=== PATIENT | male | born 1940 | race Caucasian/White ===

== ENCOUNTER 2019-05-29 04:49 | Inpatient (IN) ==
--- NOTE | 2019-05-24 11:21 | PAT Medication Instructions ---
Medication Instructions Date of Service May 24, 2019 Home Medications atorvastatin 20 mg PO QAM hydrochlorothiazide 25 mg PO QAM losartan 25 mg PO QAM metronidazole 1 applic TOPICAL BID tamsulosin 0.4 mg PO QPM STOP taking 24 hours before surgery metronidazole 1 applic TOPICAL BID DO NOT take the morning of surgery hydrochlorothiazide 25 mg PO QAM losartan 25 mg PO QAM Take morning of surgery With a small sip of water, OTHERWISE NOTHING TO EAT OR DRINK AFTER MIDNIGHT: atorvastatin 20 mg PO QAM Take evening before surgery tamsulosin 0.4 mg PO QPM Other Notes If you have any questions please call us at [phone] or [phone] or [phone] or [phone]
--- NOTE | 2019-05-24 11:43 | Anesthesiology Consultation ---
Date of Service May 24, 2019 Assessment & Plan (1) Encounter for pre-operative examination: Chart Review Chart Review: Acceptable Risk for Surgery and Patient seen in Pre Admission Testing Teaching & Discussion Instructed NPO after midnight before surgery, except medications with 15 cc of water. Medication instructions provided according to the PAT guidelines. History Surgery Operation Date: 05/29/19 11:55 Proposed Procedures p Left Laparoscopic Hand Assisted Nephrectomy - Toby Rao MD Height/Weight Height: 5 ft 7 in Weight: 88.9 kg Allergies Allergy/AdvReac Type Severity Reaction Status Date / Time No Known Allergies Allergy Verified 05/24/19 11:13 Medications Home Medications Medication Instructions Recorded Confirmed Last Taken atorvastatin 20 mg PO QAM 05/24/19 05/24/19 Unknown hydrochlorothiazide 25 mg PO QAM 05/24/19 05/24/19 Unknown losartan 25 mg PO QAM 05/24/19 05/24/19 Unknown metronidazole 1 applic TOPICAL BID 05/24/19 05/24/19 Unknown tamsulosin 0.4 mg PO QPM 05/24/19 05/24/19 Unknown Past Medical History Medical History Hematuria Hyperlipidemia Hypertension Kidney tumor LEFT SIDE (REASON FOR PROCEDURE) Osteoarthritis Exercise / Class Metabolic Activity II 4-5 Yardwork/Stairs/Walk up hill (denies CP or SOB with 1 FOS) Past Family History Family History Father Family hx of colon cancer Past Surgical History Surgical History History of colonoscopy History of herniorrhaphy INGUINAL History of tooth extraction Past Anesthesia History No Hx of Anesthesia Complications and No Family Hx of Anesthesia Complications History of PONV No Hx of PONV and No Hx of Motion Sickness Social History Smoking Status: Former smoker tobacco type: cigarettes Do You Dip or Chew Tobacco: No Smoking End Date: QUIT OVER 20 YEARS AGO Hx Alcohol Use: No Hx Substance Use: No substance use type: does not use Review of Systems Pt denies any recent chest pain, shortness of breath, palpitations, cough, fever or URI. Physical Exam Vital Signs BP: 108/68 P: 68bpm SPO2: 93% RA T: 97.6 F R: 16 ENMT Mouth: no dental restorations, no chipped teeth and no loose teeth Thyromental Distance: < 3.5 Finger Breadths (3) Mallampati Class: II Neck + short neck; neck extension not limited Respiratory normal respiratory effort Auscultation: lungs clear to auscultation bilaterally Cardiovascular Rate/Rhythm: regular rate and regular rhythm Heart Sounds: no murmur Vessels: no carotid bruit Testing Laboratory Results 05/24/19 11:54 05/24/19 11:54 Urine Color [place] 05/24/19 11:54 Urine Appearance Cloudy (Clear) A 05/24/19 11:54 Urine pH 7.0 (4.5-7.5) 05/24/19 11:54 Ur Specific [place] 1.020 (1.000-1.030) 05/24/19 11:54 Urine Protein 1+ (Negative) H 05/24/19 11:54 Urine Glucose (UA) Negative (Negative) 05/24/19 11:54 Urine Ketones Negative (Negative) 05/24/19 11:54 Urine Nitrite Negative (Negative) 05/24/19 11:54 Ur Leukocyte Esterase 2+ (Negative) H 05/24/19 11:54 Urine WBC (Auto) >30 /hpf (0-5) H 05/24/19 11:54 Urine RBC (Auto) >30 /hpf (0-4) H 05/24/19 11:54 U Hyaline Cast (Auto) 1-5 /lpf (0-5) 05/24/19 11:54 U Epithel Cells (Auto) >30 /lpf (0-5) H 05/24/19 11:54 Urine Bacteria (Auto) Negative (Negative) 05/24/19 11:54 Blood Type A Negative 05/24/19 11:54 Antibody Screen NEGATIVE 05/24/19 11:54 Electrocardiogram Date: 05/24/19 Findings: + SB @ (59) Nonspecific ST and T wave abnormality. Other Testing Chest CT 05/18/19 FINDINGS: No focal thyroid nodule. Nonspecific prominent right hilar lymph nodes are seen measuring up to 9 mm. Scattered nonenlarged mediastinal lymph nodes are likely physiologic. Coronary arterial calcifications are noted. Heart is normal in size without pericardial effusion. No thoracic aortic aneurysm. Mixed plaque formation of the thoracic aorta without aneurysm or dissection. Pulmonary arterial tree appears unremarkable. Mild emphysema. Mild biapical pleural-parenchymal scarring without pneumothorax or pleural effusion. Bibasilar linear consolidative and groundglass opacities suggest atelectasis. There are no suspicious pulmonary nodules or masses identified to suggest metastasis. Central airways appear to be patent. Partially imaged mass of the superior pole left kidney. Indeterminate 12 mm hypodense lesion of the left hepatic lobe. Hepatic steatosis. Soft tissues are unremarkable. Degenerative changes of the shoulders and spine. There are no suspicious lytic or blastic bony lesions identified. IMPRESSION: 1. Partially imaged mass of the superior pole left kidney. Please see separately dictated CT abdomen and pelvis study of same day for further details. 2. Nonspecific mildly prominent mediastinal with prominent and mildly enlarged hilar lymph nodes. 3. No definite evidence of metastatic disease within the chest. 4. Additional findings as above. Abdomen/Pelvis CT 05/18/19 IMPRESSION: 1. A 6.3 x 6.1 cm heterogeneously enhancing exophytic mass within the upper pole of the left kidney. This is consistent with a renal cell carcinoma. A small portion of this mass extends into the left renal sinus. This distorts and may invade into a single upper pole calyx. 2. No evidence for distant metastatic disease within the abdomen or pelvis. 3. An 11 mm hypodense lesion within the left hepatic lobe is difficult to characterize due to its small size but does not appear to enhance. Therefore, this favors a benign lesion. This bears watching on future examinations.
[2019-05-24 12:32] LABS: Appearance Urine Cloudy (Clear); Bacteria Urine Automated Negative (Negative); Bilirubin Urine Negative (Negative); Blood Urine 3+ (Negative); Color Urine Orange; Epithelial Cell Urine Auto >30 /lpf (0-5); Glucose Urine UA Negative (Negative); Ketones Urine Negative (Negative); Leukocyte Esterase Urine 2+ (Negative); Nitrite Urine Negative (Negative); Protein Urine 1+ (Negative); RBC Urine Automated >30 /hpf (0-4); Urobilinogen Urine Negative (Negative); WBC Urine Automated >30 /hpf (0-5)
[2019-05-24 12:51] LABS: Basophils # (auto) 0.03 K/uL (0-0.2); Basophils % (auto) 0.4 %; Eosinophils # (auto) 0.08 K/uL (0-0.5); Eosinophils % (auto) 1.2 %; Hematocrit (blood only) 42.8 % (42-52); Hemoglobin 14.2 g/dL (14.0-18.0); Immature Granulocytes # (auto) 0.03 K/uL (0.00-0.02); Immature Granulocytes % (auto) 0.4 %; Lymphocytes # (auto) 1.29 K/uL (1.2-3.4); Mean Corpuscular Hgb Conc 33.2 g/dL (32-36); Mean Corpuscular Volume 91.5 fL (80-100); Mean Platelet Volume 9.7 fL (7.4-10.4); Monocytes # (auto) 0.34 K/uL (0.11-0.59); Neutrophils # (auto) 5.03 K/uL (1.4-6.5); Platelet Count 249 K/uL (130-400); RDW Standard Deviation 46.8 fL (36.4-46.3); Red Blood Count 4.68 M/uL (4.7-6.1)
[2019-05-24 13:35] LABS: BUN Creatinine Ratio 19.9 (10-20); Calcium 9.4 mg/dl (8.5-10.1); Creatinine Clr Calc Pharmacy 49.9 ml/min; Est GFR (African American) 59.9; Est GFR (Non-African American) 51.7; Potassium 3.6 mmol/L (3.5-5.1)
[2019-05-24 13:40] LABS: Prostate Specific Antigen 2.68 ng/ml (0-4)
[~2019-05-29 04:49] MED LIST: KETOROLAC 30 MG/ML VIAL ONE; ONDANSETRON INJ 2 MG/ML 2 ML VIAL ONE
[2019-05-29] MEDS ORDERED: CEFAZOLIN 2000MG 2,000 MG/15 ML SYR IV SCH (06:00)
[2019-05-29] MEDS ORDERED: ACETAMINOPHEN 1000 MG/100 ML IV IV SCH (06:00)
[2019-05-29] MEDS ORDERED: LR 15ML/HR IV SCH (06:00)
[2019-05-29] MEDS ORDERED: LIDOCAINE HCL 2% 2 ML VIAL/AMP(20MG/ML) INFIL ONE (06:32)
[2019-05-29] MEDS ORDERED: ROCURONIUM BROMIDE 10 MG/ML 5 ML VIAL ONE ×2 (06:32→08:17)
[2019-05-29] MEDS ORDERED: MIDAZOLAM HCL 1 MG/ML 2ML VIAL ONE (06:32)
[2019-05-29] MEDS ORDERED: PROPOFOL IV EMULSION 10 MG/ML 20 ML VIAL IV ONE (06:32)
[2019-05-29] MEDS ORDERED: DEXAMETHASONE SOD INJ 4 MG/ML VIAL ONE (06:32)
[2019-05-29] MEDS ORDERED: ONDANSETRON INJ 2 MG/ML 2 ML VIAL ONE (06:32)
[2019-05-29] MEDS ORDERED: fentaNYL citrate 100 MCG/2 ML VIAL ONE (06:32)
--- NOTE | 2019-05-29 07:00 | History & Physical Bridge Note ---
Date of Service May 29, 2019 History & Physical Bridge Note I have examined the patient, reviewed the History & Physical and in the interval since the performance of the History & Physical I have noted the following changes of clinical significance: no changes noted
[2019-05-29] MEDS ORDERED: BUPIVACAINE 0.5 % 5 MG/1 ML MPF 30ML VIAL ONE (07:01)
[2019-05-29] MEDS ORDERED: ONDANSETRON INJ 2 MG/ML 2 ML VIAL IV PRN ×2 (07:39→12:00)
[2019-05-29] MEDS ORDERED: HYDROmorphone INJ 1 MG/ML SYRINGE IV PRN (07:39)
[2019-05-29] MEDS ORDERED: fentaNYL citrate 100 MCG/2 ML VIAL IV PRN (07:39)
[2019-05-29] MEDS ORDERED: LABETALOL HCL IV 5 MG/ML 20ML IV PRN (07:39)
[2019-05-29] MEDS ORDERED: PHENYLEPHRINE 100MCG/ML 5ML SYR IV PRN (07:39)
[2019-05-29] MEDS ORDERED: ATROPINE SULFATE 0.1 MG/ML 10ML SYR IV PRN (07:39)
[2019-05-29] MEDS ORDERED: ePHEDrine sulfate 50 MG/ML AMP IV PRN (07:39)
[2019-05-29] MEDS ORDERED: GLYCOPYRROLATE 0.2 MG/ML VIAL ONE (08:00)
[2019-05-29] MEDS ORDERED: ePHEDrine sulfate 50 MG/ML SYR ONE (08:00)
[2019-05-29] MEDS ORDERED: NEOSTIGMINE METHYLSULFATE 5 MG/5 ML SYR ONE (08:00)
[2019-05-29] MEDS ORDERED: SODIUM CHLORIDE 0.9% INJ 10 ML VIAL ONE (08:14)
[2019-05-29] MEDS ORDERED: HYDROmorphone INJ 2 MG/ML SYR/VIAL ONE (08:14)
[2019-05-29] MEDS ORDERED: TISSEEL FIBRIN SEALANT 4ML TOP ONE (08:44)
--- NOTE | 2019-05-29 09:49 | Operative Report ---
Post Operative Report Pre & Post Diagnosis Operation Date: 05/29/19 07:15 Pre-Op Diagnosis: Left Renal Mass Post-Op Diagnosis: Left Renal Mass Procedure Operation Date: 05/29/19 07:15 Actual Procedures p Left Radical Laparoscopic Hand Assisted Nephrectomy, Laparoscopic Lysis of Adhesions, Left Retroperitoneal Lymph Node Dissection(Left) - Toby Rao MD Surgeon Toby Rao MD Furnace Combustion Tester JANKI Brasher Estimated Blood Loss 50 Findings Consistent with Post-Op Diagnosis Specimens L kidney, L retroperitoneal LN Description of Procedure L HALN, L RPLND, lap CHARMAINE I attest to the content of the Intraoperative Record and any orders documented therein. Any exceptions are noted below.
[2019-05-29 10:18] LABS: Basophils # (auto) 0.02 K/uL (0-0.2); Basophils % (auto) 0.2 %; Eosinophils # (auto) 0.01 K/uL (0-0.5); Eosinophils % (auto) 0.1 %; Hematocrit (blood only) 41.1 % (42-52); Hemoglobin 13.8 g/dL (14.0-18.0); Immature Granulocytes # (auto) 0.03 K/uL (0.00-0.02); Immature Granulocytes % (auto) 0.2 %; Lymphocytes # (auto) 1.36 K/uL (1.2-3.4); Lymphocytes % (auto) 10.5 %; Mean Corpuscular Volume 91.9 fL (80-100); Mean Platelet Volume 9.3 fL (7.4-10.4); Monocytes # (auto) 0.24 K/uL (0.11-0.59); Monocytes % (auto) 1.9 %; Neutrophils # (auto) 11.28 K/uL (1.4-6.5); Neutrophils % (auto) 87.1 %; Platelet Count 235 K/uL (130-400); RDW Standard Deviation 47.2 fL (36.4-46.3); Red Blood Count 4.47 M/uL (4.7-6.1); White Blood Count 12.94 K/uL (4.8-10.8)
[2019-05-29 10:36] LABS: BUN Creatinine Ratio 14.6 (10-20); Creatinine Clr Calc Pharmacy 45.2 ml/min; Est GFR (African American) 53.9; Est GFR (Non-African American) 46.5; Potassium 3.7 mmol/L (3.5-5.1)
--- NOTE | 2019-05-29 10:42 | Anesthesiology Progress Note ---
Date of Service May 29, 2019 Anesthesia Post Procedure Vital Signs Vital Signs: Temp Pulse Pulse Resp BP Pulse Ox 05/29/19 10:35 36.4 C L 65 16 115/62 94 05/29/19 10:25 65 16 133/66 95 05/29/19 10:15 61 14 129/73 96 05/29/19 10:05 74 16 125/73 97 05/29/19 09:57 36.3 C L 90 20 119/68 96 05/29/19 05:32 36.6 C 64 18 119/79 92 Pain Intensity Left Flank: Pain Intensity: 0 Transfer of Care Handoff Completed per policy Notes Mental Status: alert / awake / arousable Patient Amnestic to Procedure: Yes Nausea / Vomiting: adequately controlled Pain: adequately controlled Airway Patency, RR, SpO2: stable & adequate BP & HR: stable & adequate Hydration State: stable & adequate Anesthetic Complications: no major complications apparent and Pt Satisfied with anesthetic care
[2019-05-29 10:46] LABS: Mean Corpuscular Hgb Conc 33.6 g/dL (32-36)
[2019-05-29] MEDS ORDERED: LACTATED RINGER'S 250 ML IV ONE (11:14)
[2019-05-29] MEDS ORDERED: MoRPHine SULFATE 4 MG/ML 1 ML CARP\\VIAL IV PRN (12:00)
[2019-05-29] MEDS ORDERED: OXYCODONE HCL IR 5 MG TAB (IMMEDIATE RELEASE) PO PRN ×2 (12:00)
[2019-05-29 12:35] LABS: Hematocrit (blood only) 40.3 % (42-52); Hemoglobin 13.4 g/dL (14.0-18.0); Mean Corpuscular Hgb Conc 33.3 g/dL (32-36); Mean Corpuscular Volume 90.4 fL (80-100); Mean Platelet Volume 9.3 fL (7.4-10.4); Platelet Count 240 K/uL (130-400); RDW Standard Deviation 46.2 fL (36.4-46.3); Red Blood Count 4.46 M/uL (4.7-6.1); White Blood Count 15.06 K/uL (4.8-10.8)
[2019-05-29 12:44] LABS: INR 1.1 (0.9-1.1); Prothrombin Time 11.4 Seconds (9.0-12.0)
[2019-05-29] MEDS: FAMOTIDINE 20 MG in SYRINGE 3 ML IV SCH (13:07)
[2019-05-29] MEDS: LACTATED RINGER'S 1,000 ML IV SCH ×2 (13:08→21:05)
[2019-05-29] MEDS: CEFAZOLIN 2000MG 2,000 MG/15 ML SYR IV SCH ×2 (14:27→22:17)
[2019-05-29] MEDS: ACETAMINOPHEN 1,000 MG/100 ML VIAL IV PRN (18:39)
[2019-05-29] MEDS: TAMSULOSIN HCL 0.4 MG CAP PO SCH (21:06)
[2019-05-29] MEDS: DOCUSATE SODIUM 100 MG CAP PO SCH (21:06)
[2019-05-29] MEDS: HEPARIN SOD 5,000 UNIT/0.5 ML VIAL SQ SCH (21:08)
--- NOTE | 2019-05-29 21:20 | Operative Report ---
DATE OF OPERATION: 05/29/2019 DATE OF PROCEDURE: 05/29/2019 PREOPERATIVE DIAGNOSIS: Left 6.3 cm upper pole renal mass. POSTOPERATIVE DIAGNOSIS: Left 6.3 cm upper pole renal mass. PROCEDURE: Laparoscopic lysis of adhesions, left-sided hand assisted laparoscopic radical nephrectomy and left retroperitoneal lymph node dissection. SURGEON: Toby Rao MD APPLICATION TECHNICAL DESIGNER: JANKI Warren. Analytical Scientist is present throughout the case for access to the abdomen, retraction, instrument passage, camera manipulation and direction, suction and patient positioning as well as general patient safety. ESTIMATED BLOOD LOSS: 50 mL. IV FLUIDS: 1600 mL of crystalloid. SPECIMENS SENT TO PATHOLOGY: Left kidney, left retroperitoneal lymph nodes. DRAINS LEFT IN PLACE: Include an 18-Tamazight coude Jean catheter to gravity drainage. FINDINGS: Left upper quadrant adhesions lysed over the course of approximately 15 minutes at the beginning of the case laparoscopically. Normal anatomy with excellent hemostasis after completion of the case. COMPLICATIONS: None. BRIEF HISTORY: Mr. Miguel is a pleasant 79-year-old male found to have a left renal mass on evaluation for gross hematuria. CT scan imaging confirms a lesion suspicious for renal cell carcinoma. Unfortunately, due to the size and location, it was felt to be poor candidate for nephron sparing surgery. Seen a high normal baseline creatinine in the healthy contralateral kidney on imaging, left-sided hand-assisted laparoscopic radical nephrectomy as planned. Please see H&P for further details. The patient is covered with intravenous Ancef for antibiotic coverage as well as intravenous Tylenol preoperatively for analgesia. SCDs were used for DVT prophylaxis. Informed consent was reviewed with the patient and his preoperatively who vocalizes good understanding of the treatment plan. PROCEDURE: The patient was properly identified and brought into the operative suite after identification of appropriate consent on the chart. General anesthesia with endotracheal intubation was initiated. The patient was prepped and draped in the standard fashion for this procedure. timers inspector-out procedure was followed. The patient was placed in a gentle left flank up position with all pressure points padded and his left arm within a dedicated arm cradle. A Chaudhari incision was made after instilling local at the site of incision. This was brought down through the subcutaneous tissues to the fascia of the external oblique. This was divided using Bovie cautery and the peritoneum was entered using Metzenbaum scissors and 2 DeBakey forceps. This was noted to be entered without any evidence of injury to the bowel. The incision was then enlarged over the surgeon's finger and a Gelport hand port was placed. Abdomen was insufflated and laparoscopy was performed through the Gelport. This demonstrated left upper quadrant adhesions, but otherwise no worrisome anatomic variations. Two 12 mm ports were placed in the midclavicular line. The adhesions in the left upper quadrant were taken down between the omentum, the bowel of the sidewall and anterior abdominal wall. This took approximately 15 minutes time out of the slightly greater than 1 hour case. The attention was then turned to the white line of Toldt, which was divided along the left abdominal sidewall. This was done from the pelvis to the level of the lateral splenic attachments to allow for access to the retroperitoneum. Blunt dissection in the inferior abdomen demonstrated a normal ureter and gonadal vessel. Ureter was used for lateral traction on the kidney and retroperitoneal palpation demonstrated a single artery and vein consistent with the patient's imaging findings. The bowel and abdominal contents were dropped further until the hilum was exposed. Harmonic scalpel was used to skeletonize the hilum and the renal artery and renal vein were taken using separate staple loads. Excellent hemostasis was appreciated. Lateral dissection was carried out and the kidney was freed until was able to be retracted caudad within the abdomen. The adrenal attachments were taken using further vascular staple load as well as the cephalad attachments of the kidney until the kidney was free within the abdominal cavity. Disposable clips were used to control the ureter and the inferior most pedicle of Gerota's fascia. Kidney was then removed from the abdomen and handed off for pathologic analysis. Abdomen was inspected and excellent hemostasis was appreciated. A fatty tissue at the level of the hilum and retroperitoneum on the left hand side was dissected free using Harmonic scalpel and clips as necessary for control of small vessels and lymphatics. After this was complete, this was sent as a separate pathologic analysis and labeled left retroperitoneal lymph nodes. After this was complete, again excellent hemostasis was appreciated. No injury to the bowel or intra-abdominal structures were noted. Tisseel tissue sealant was placed over the site of a retroperitoneal dissection as well as the adrenal bed and the hilum of the kidney. The ports were removed and abdomen was desufflated. Excess carbon dioxide gas was expressed from the abdomen and flexion was removed from the table. Sponge and instrument counts were noted to be correct. Fascia was closed at the level of the 12 mm ports using an 0 Vicryl suture on a UR-6 needle. The hand port was closed in 3 layers including 0 Vicryl suture on the deeper musculature of the abdomen and peritoneum x2 and a #1 Vicryl suture on the fascia of the external oblique. Subcutaneous fat was reapproximated using 3-0 Vicryl sutures and skin was closed using 4-0 Monocryl and Dermabond at all sites. Anesthesia was reversed. The patient was transferred to the recovery room in stable condition. FOLLOWUP CARE: The patient will be admitted to the floor for standard postoperative management. I attest to the content of the Intraoperative Record and any orders documented therein. Any exception s are noted below.
[2019-05-30] MEDS: FAMOTIDINE 20 MG in SYRINGE 3 ML IV SCH ×3 (00:02→23:49)
[2019-05-30] MEDS: LACTATED RINGER'S 1,000 ML IV SCH ×3 (05:05→20:02)
[2019-05-30] MEDS: CEFAZOLIN 2000MG 2,000 MG/15 ML SYR IV SCH (06:15)
--- NOTE | 2019-05-30 07:27 | Urology Progress Note ---
Date of Service May 30, 2019 Assessment & Plan (1) Left renal mass: A/P 79 yo male with 6 cm L renal mass s/p L HALN. Doing well. Full liquids in AM. Can be advanced in PM / for lunch after evaluation by SLUBBER OPERATOR. Await AM labs - not done yet, can be checked by SLUBBER OPERATOR later today. TOV today. Increase activity, IS emphasized. Anticipate possible DC home tomorrow. Subjective 79 yo male POD#1 s/p L HALN, doing well. He notes appropriate incisional pain, + OOB and ambulatory in room yesterday. Tolerating powell, clears with no emesis, no flatus yet. AM labs not drawn yet per patient, yesterday's labs noted. No other c/o, in good spirits. Review of Systems Constitutional: no fever and no chills Eyes: no diplopia Ear, Nose, Mouth, Throat: no ear trauma Respiratory: no hemoptysis Cardiovascular: no chest pain Gastrointestinal: + abdominal pain; no nausea and no vomiting Integumentary: no acne and no boil Neurologic: no paralysis Psychiatric: no hopelessness Endocrine: + fatigue Hematologic / Lymphatic: no easy bleeding Allergy / Immunological: no tongue swelling Physical Exam Constitutional: well developed and well nourished; no acute distress Eyes: eyes not dysmorphic ENMT: Ears: no external ear abnormality Neck: trachea midline; no anterior neck swelling Respiratory: no respiratory distress and does not use accessory muscles Cardiovascular: Vessels: radial pulses present Gastrointestinal (Abdomen): Inspection/Auscultation: + abdomen distended (minimally distended) Percussion/Palpation: + abdomen tender (mild incisional) and abdomen soft inc c/d/i Musculoskeletal: Head/Neck/Chest: normocephalic and neck supple Skin: normal turgor Neurologic: awake; not obtunded Psychiatric: Orientation: oriented x 3 Lymphatic: no lymphadenopathy Results & Data Vital Signs (Past 12 Hours) Vital Signs Temp Pulse Pulse Resp BP Pulse Ox 05/30/19 07:08 36.7 C 59 L 16 111/67 93 05/30/19 03:11 36.7 C 82 16 136/74 92 05/29/19 22:58 36.7 C 56 L 16 111/58 L 94 05/29/19 19:55 36.7 C 58 L 17 118/64 94 PG Care Time/CCT Total # of Minutes Spent Total Time Spent with Patient: Total time spent is greater than 50% in coordination of care (as documented) at patient's floor/unit and/or counseling patient:
[2019-05-30] MEDS: ACETAMINOPHEN 1,000 MG/100 ML VIAL IV PRN (07:35)
[2019-05-30 07:42] LABS: Basophils # (auto) 0.01 K/uL (0-0.2); Basophils % (auto) 0.1 %; Eosinophils # (auto) 0.03 K/uL (0-0.5); Eosinophils % (auto) 0.2 %; Hematocrit (blood only) 36.9 % (42-52); Hemoglobin 12.2 g/dL (14.0-18.0); Immature Granulocytes # (auto) 0.03 K/uL (0.00-0.02); Immature Granulocytes % (auto) 0.2 %; Lymphocytes # (auto) 1.23 K/uL (1.2-3.4); Lymphocytes % (auto) 10.1 %; Mean Corpuscular Volume 92.3 fL (80-100); Monocytes # (auto) 1.03 K/uL (0.11-0.59); Monocytes % (auto) 8.4 %; Neutrophils # (auto) 9.87 K/uL (1.4-6.5); Platelet Count 200 K/uL (130-400); RDW Coefficient of Variation 14.4 % (11.5-14.5)
[2019-05-30 07:51] LABS: Mean Corpuscular Hgb Conc 33.1 g/dL (32-36)
--- NOTE | 2019-05-30 07:53 | Anesthesiology Progress Note ---
Date of Service May 30, 2019 Anesthesia Post Procedure Vital Signs Vital Signs: Temp Pulse Pulse Pulse Resp BP Pulse Ox 05/30/19 07:08 36.7 C 59 L 16 111/67 93 05/30/19 03:11 36.7 C 82 16 136/74 92 05/29/19 22:58 36.7 C 56 L 16 111/58 L 94 05/29/19 19:55 36.7 C 58 L 17 118/64 94 05/29/19 15:01 36.4 C L 62 17 128/69 90 05/29/19 14:52 36.8 C 65 16 122/62 91 05/29/19 13:43 36.4 C L 64 16 121/71 93 05/29/19 12:45 36.4 C L 62 14 139/72 90 05/29/19 12:15 36.5 C 67 15 108/58 L 91 05/29/19 11:45 36.9 C 68 14 126/70 95 05/29/19 11:25 36.4 C L 64 14 135/81 95 05/29/19 11:15 63 14 127/70 96 05/29/19 11:05 64 14 105/62 96 05/29/19 10:55 63 16 124/66 96 05/29/19 10:45 66 14 128/71 96 05/29/19 10:35 36.4 C L 65 16 115/62 94 05/29/19 10:25 65 16 133/66 95 05/29/19 10:15 61 14 129/73 96 05/29/19 10:05 74 16 125/73 97 05/29/19 09:57 36.3 C L 90 20 119/68 96 Pain Intensity Left Flank: Pain Intensity: 0 Pelvic: Pain Intensity: 2 Notes Mental Status: alert / awake / arousable Patient Amnestic to Procedure: Yes Nausea / Vomiting: adequately controlled Pain: adequately controlled Airway Patency, RR, SpO2: stable & adequate BP & HR: stable & adequate Hydration State: stable & adequate Anesthetic Complications: no major complications apparent and Pt Satisfied with anesthetic care
[2019-05-30 07:57] LABS: BUN Creatinine Ratio 10.5 (10-20); Calcium 8.6 mg/dl (8.5-10.1); Creatinine Clr Calc Pharmacy 34.1 ml/min; Est GFR (African American) 38.3; Est GFR (Non-African American) 33.1; Potassium 3.8 mmol/L (3.5-5.1)
[2019-05-30] MEDS: DOCUSATE SODIUM 100 MG CAP PO SCH ×2 (09:22→19:56)
[2019-05-30] MEDS: hydroCHLOROthiazide 25 MG TAB PO SCH (09:25)
[2019-05-30] MEDS: ATORVASTATIN 20 MG TAB PO SCH (09:25)
[2019-05-30] MEDS: LOSARTAN POTASSIUM 25 MG TAB PO SCH (09:25)
[2019-05-30] MEDS: HEPARIN SOD 5,000 UNIT/0.5 ML VIAL SQ SCH ×2 (09:26→19:56)
[2019-05-30] MEDS ORDERED: CEFAZOLIN 2000MG 2,000 MG/15 ML SYR IV SCH (12:15)
--- NOTE | 2019-05-30 14:17 | Communication Note ---
Date of Service: May 30, 2019 79YO male POD #1 s/p RAMSES. Seen in afternoon rounds. Patient up ambulating in hallway. OOB to chair. Reports expected soreness to hand incision, otherwise feeling well. Some fatigue. No nausea/vomiting. Has passed flatus. Will advance diet to mechanical soft for dinner. Repeat AM labs ordered. Likely DC tomorrow.
[2019-05-30] MEDS: TAMSULOSIN HCL 0.4 MG CAP PO SCH (19:56)
[2019-05-31] MEDS: LACTATED RINGER'S 1,000 ML IV SCH (03:49)
[2019-05-31 07:01] LABS: Basophils # (auto) 0.03 K/uL (0-0.2); Basophils % (auto) 0.3 %; Eosinophils # (auto) 0.11 K/uL (0-0.5); Eosinophils % (auto) 1.1 %; Hematocrit (blood only) 36.3 % (42-52); Immature Granulocytes # (auto) 0.04 K/uL (0.00-0.02); Immature Granulocytes % (auto) 0.4 %; Lymphocytes # (auto) 1.52 K/uL (1.2-3.4); Lymphocytes % (auto) 15.7 %; Mean Corpuscular Hgb Conc 33.1 g/dL (32-36); Mean Corpuscular Volume 92.1 fL (80-100); Mean Platelet Volume 9.9 fL (7.4-10.4); Monocytes # (auto) 1.02 K/uL (0.11-0.59); Monocytes % (auto) 10.6 %; Neutrophils # (auto) 6.94 K/uL (1.4-6.5); Neutrophils % (auto) 71.9 %; Platelet Count 224 K/uL (130-400); RDW Coefficient of Variation 14.4 % (11.5-14.5); Red Blood Count 3.94 M/uL (4.7-6.1); White Blood Count 9.66 K/uL (4.8-10.8)
[2019-05-31 07:21] LABS: BUN Creatinine Ratio 10.3 (10-20); Calcium 8.6 mg/dl (8.5-10.1); Creatinine Clr Calc Pharmacy 35.4 ml/min; Est GFR (African American) 40.1; Est GFR (Non-African American) 34.6; Potassium 3.8 mmol/L (3.5-5.1)
--- NOTE | 2019-05-31 08:38 | Urology Progress Note ---
Date of Service May 31, 2019 Assessment & Plan (1) Left renal mass: A/P 79 yo male with 6 cm L renal mass POD#2 s/p L HALN. Doing well. Regular diet. HTIVF. DC home today. DC instructions reviewed - patient vocalizes good understanding of the treatment plan. Subjective 79 yo male POD#2 s/p L HALN. He is tolerating PO, ambulatory, comfortable and in good spirits. Labs noted, Cr improved to 1.8, no other c/o, no f/c/n/v, no BM yet. Review of Systems Constitutional: no fever and no chills Eyes: no diplopia Ear, Nose, Mouth, Throat: no ear trauma Respiratory: no hemoptysis Cardiovascular: no chest pain Gastrointestinal: + abdominal pain (improved); no bloating, no nausea and no vomiting Integumentary: no acne and no boil Neurologic: no paralysis and no numbness Psychiatric: no hopelessness Allergy / Immunological: no tongue swelling Physical Exam Constitutional: well developed and well nourished; no acute distress Eyes: eyes not dysmorphic ENMT: Ears: no external ear abnormality Neck: trachea midline; no anterior neck swelling Respiratory: no respiratory distress and does not use accessory muscles Cardiovascular: Vessels: radial pulses present Gastrointestinal (Abdomen): Inspection/Auscultation: abdomen not distended Percussion/Palpation: abdomen soft; abdomen nontender (minimal) Musculoskeletal: Head/Neck/Chest: normocephalic and neck supple Skin: normal turgor Neurologic: awake; not obtunded Psychiatric: Orientation: oriented x 3 Genitourinary: no penis abnormality Lymphatic: no lymphadenopathy Results & Data Vital Signs (Past 12 Hours) Vital Signs Temp Pulse Pulse Resp BP Pulse Ox 05/31/19 07:51 36.5 C 70 14 166/80 H 95 05/30/19 23:52 36.9 C 67 16 152/91 H 91 Laboratory Results Laboratory Results - last 48 hr 05/29/19 05/29/19 05/29/19 10:08 10:08 12:17 WBC 12.94 H 15.06 H RBC 4.47 L 4.46 L Hgb 13.8 L 13.4 L Hct 41.1 L 40.3 L MCV 91.9 90.4 MCH 30.9 30.0 MCHC 33.6 33.3 RDW Std Deviation 47.2 H 46.2 RDW Coeff of Luli 14.0 14.0 Plt Count 235 240 MPV 9.3 9.3 Immature Gran % (Auto) 0.2 Neut % (Auto) 87.1 Lymph % (Auto) 10.5 [place]ff[place] % (Auto) 1.9 Eos % (Auto) 0.1 Baso % (Auto) 0.2 Immature Gran # (Auto) 0.03 H Neut # (Auto) 11.28 H Lymph # (Auto) 1.36 [place]duffie # (Auto) 0.24 Eos # (Auto) 0.01 Baso # (Auto) 0.02 PT INR Sodium 140 Potassium 3.7 Chloride 104 Carbon Dioxide 28 Anion Gap 8.0 BUN 21 H Creatinine 1.44 H Est Cr Clr Drug Dosing 45.2 Est GFR ( Amer) 53.9 Est GFR (Non-Af Amer) 46.5 BUN/Creatinine Ratio 14.6 Glucose 150 H Calcium 9.0 05/29/19 05/30/19 05/30/19 12:17 07:32 07:32 WBC 12.20 H RBC 4.00 L Hgb 12.2 L Hct 36.9 L MCV 92.3 MCH 30.5 MCHC 33.1 RDW Std Deviation 49.0 H RDW Coeff of Luli 14.4 Plt Count 200 MPV 9.0 Immature Gran % (Auto) 0.2 Neut % (Auto) 81.0 Lymph % (Auto) 10.1 [place]ff[place] % (Auto) 8.4 Eos % (Auto) 0.2 Baso % (Auto) 0.1 Immature Gran # (Auto) 0.03 H Neut # (Auto) 9.87 H Lymph # (Auto) 1.23 [place]ff[place] # (Auto) 1.03 H Eos # (Auto) 0.03 Baso # (Auto) 0.01 PT 11.4 INR 1.1 Sodium 143 Potassium 3.8 Chloride 108 H Carbon Dioxide 31 Anion Gap 4.0 BUN 20 H Creatinine 1.91 H D Est Cr Clr Drug Dosing 34.1 Est GFR ( Amer) 38.3 Est GFR (Non-Af Amer) 33.1 BUN/Creatinine Ratio 10.5 Glucose 120 H Calcium 8.6 05/31/19 05/31/19 06:08 06:08 WBC 9.66 RBC 3.94 L Hgb 12.0 L Hct 36.3 L MCV 92.1 MCH 30.5 MCHC 33.1 RDW Std Deviation 49.0 H RDW Coeff of Luli 14.4 Plt Count 224 MPV 9.9 Immature Gran % (Auto) 0.4 Neut % (Auto) 71.9 Lymph % (Auto) 15.7 [place] % (Auto) 10.6 Eos % (Auto) 1.1 Baso % (Auto) 0.3 Immature Gran # (Auto) 0.04 H Neut # (Auto) 6.94 H Lymph # (Auto) 1.52 [place]duffie # (Auto) 1.02 H Eos # (Auto) 0.11 Baso # (Auto) 0.03 PT INR Sodium 142 Potassium 3.8 Chloride 108 H Carbon Dioxide 30 Anion Gap 4.0 BUN 19 H Creatinine 1.84 H Est Cr Clr Drug Dosing 35.4 Est GFR ( Amer) 40.1 Est GFR (Non-Af Amer) 34.6 BUN/Creatinine Ratio 10.3 Glucose 88 Calcium 8.6 PG Care Time/CCT Total # of Minutes Spent Total Time Spent with Patient: Total time spent is greater than 50% in coordination of care (as documented) at patient's floor/unit and/or counseling patient:
[2019-05-31] MEDS: DOCUSATE SODIUM 100 MG CAP PO SCH (09:20)
[2019-05-31] MEDS: HEPARIN SOD 5,000 UNIT/0.5 ML VIAL SQ SCH (09:21)
[2019-05-31] MEDS: LOSARTAN POTASSIUM 25 MG TAB PO SCH (09:21)
[2019-05-31] MEDS: ATORVASTATIN 20 MG TAB PO SCH (09:21)
[2019-05-31] MEDS: hydroCHLOROthiazide 25 MG TAB PO SCH (09:21)
[2019-05-31] MEDS ORDERED: FAMOTIDINE 20 MG TAB PO SCH (21:00)
--- NOTE | 2019-06-15 11:57 | Discharge Summary ---
Date of Service June 15, 2019 Admission HPI Per Admitting Provider 79 yo male with L central renal mass for nephrectomy. Please see H&P for further details. Admission Exam (Per Admitting) Constitutional well developed and well nourished; no acute distress Eyes eyes not dysmorphic ENMT Ears: no external ear abnormality Neck trachea midline; no anterior neck swelling Respiratory no respiratory distress and does not use accessory muscles Cardiovascular Vessels: radial pulses present Gastrointestinal (Abdomen) Inspection/Auscultation: abdomen not distended Percussion/Palpation: abdomen soft; abdomen nontender (minimal) Musculoskeletal Head/Neck/Chest: normocephalic and neck supple Skin normal turgor Neurologic awake; not obtunded Psychiatric Orientation: oriented x 3 Genitourinary no penis abnormality Lymphatic no lymphadenopathy Discharge Data Procedures Performed Operation Date: 05/29/19 07:15 Actual Procedures p Left Radical Laparoscopic Hand Assisted Nephrectomy, Laparoscopic Lysis of A dhesions, Left Retroperitoneal Lymph Node Dissection(Left) - Toby Rao MD Hospital Course (1) Left renal mass: A/P 79 yo male with 6 cm L renal mass POD#2 s/p L HALN. Doing well. Regular diet. HTIVF. DC home today. DC instructions reviewed - patient vocalizes good understanding of the treatment plan. Discharge Instructions See DC instruction sheet and Rx. Follow-up appointments in place.
== END 2019-05-31 13:14 | disposition home or self-care (01) | DRG 657 ==
LOC: ASU 04:49 → 3N 09:48
DX: Z87.891 Personal history of nicotine dependence; I10 Essential (primary) hypertension; R33.9 Retention of urine, unspecified; Z80.0 Family history of malignant neoplasm of digestive organs; N13.8 Other obstructive and reflux uropathy; R31.0 Gross hematuria; E78.5 Hyperlipidemia, unspecified; Z82.49 Family history of ischemic heart disease and other diseases of the circulatory system; C64.2 Malignant neoplasm of left kidney, except renal pelvis; N40.1 Benign prostatic hyperplasia with lower urinary tract symptoms